=== PATIENT | female | born 1960 | race Caucasian/White ===

== ENCOUNTER 2021-09-20 13:22 | Emergency (ER) | payer OTHER, SELFPAY ==
[2021-09-20 13:37] VITALS: BP 127/82; PULSE 77; RESP 18; TEMP 36.3; O2SAT 100
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
[2021-09-20 13:54] VITALS: BP 127/82; PULSE 77; RESP 18; TEMP 36.3; O2SAT 100
== END 2021-09-20 14:07 | disposition home or self-care (01) ==
PROVIDERS: Emergency Provider Nurse Practitioner
DX: K08.89 Other specified disorders of teeth and supporting structures (principal); Z87.891 Personal history of nicotine dependence
CPT/HCPCS: 99203; G0463

== ENCOUNTER 2021-10-30 09:52 | Emergency (ER) | payer OTHER, SELFPAY ==
[2021-10-30 10:02] VITALS: BP 141/91; PULSE 73; RESP 16; TEMP 36.2; O2SAT 99
[2021-10-30 10:16] VITALS: BP 141/91; PULSE 73; RESP 16; TEMP 36.2; O2SAT 99
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
== END 2021-10-30 10:33 | disposition home or self-care (01) ==
PROVIDERS: Emergency Provider Nurse Practitioner
DX: K59.00 Constipation, unspecified (principal); Z87.891 Personal history of nicotine dependence
CPT/HCPCS: 99211; G0463

== ENCOUNTER 2021-11-16 15:30 | Emergency (ER) | payer OTHER, SELFPAY ==
[2021-11-16 15:43] VITALS: BP 145/96; PULSE 80; RESP 16; TEMP 37.7; O2SAT 98
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
[2021-11-17 12:27] LABS: SARS-CoV-2 RNA PCR Positive
== END 2021-11-16 17:04 | disposition home or self-care (01) ==
PROVIDERS: Emergency Provider Nurse Practitioner
DX: U07.1 COVID-19 (principal); Z87.891 Personal history of nicotine dependence
CPT/HCPCS: 87426; 87804; 99213; C9803; G0463; U0003; U0005

== ENCOUNTER 2021-11-21 15:53 | Emergency (ER) | payer OTHER, SELFPAY ==
[2021-11-21] VITALS (21 sets, daily range): BP systolic 135–155; BP diastolic 81–100; PULSE 0–101; RESP 0–38; TEMP 37–37.1; O2SAT 98
--- NOTE | ~2021-11-21 | XR_ITS ---
EXAMINATION: XR chest 1V portable EXAM DATE: 11/21/2021 16:44 INDICATION: SOB, N/V, Headache, COVID + Since Mon, Symptoms worsening. TECHNIQUE: Portable AP frontal chest x-ray was obtained. There is no prior study for comparison. FINDINGS: Small amount of ill-defined bibasilar airspace disease.. There are no pleural effusions. Cardiomediastinal silhouette is normal. The lungs are hyperinflated which can be seen with chronic ob structive pulmonary disease (a clinical diagnosis of functional impairment), but is not diagnostic of it. There is no pneumothorax suspected. The bones and soft tissues are unremarkable. IMPRESSION: Small amount of ill-defined bibasilar edema or pneumonia. Reviewed, dictated and finalized at location G. [employer] DEVELOPER
--- NOTE | 2021-11-21 16:16 | ECG_ITS ---
Measurements Intervals [place] Rate: 72 P: 5 MN: 135 QRS: -43 QRSD: 84 T: 67 QT: 364 QTc: 400 Interpretive Statements SINUS RHYTHM LEFT AXIS DEVIATION LOW QRS VOLTAGE IN PRECORDIAL LEADS BORDERLINE R WAVE PROGRESSION, ANTERIOR LEADS BORDERLINE ST-T WAVE ABNORMALITY- HIGH LATERAL LEADS BASELINE ARTIFACT- I, II, V3 BORDERLINE ECG Electronically Signed On 11-21-2021 20:21:17 [employer] by Paulie Haque D.O.
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
[2021-11-21] MEDS: ALBUTEROL SULFATE NEB 2.5 MG/0.5 ML INH 5 MG INHALATION (16:49)
[2021-11-21 16:50] LABS: Basophils Percent Auto 0.4 % (0.2-1.2); Eosinophils Percent Auto 0.2 % (0-4.4); Hematocrit 44.9 % (37.0-47.0); Hemoglobin 15.1 g/dL (12.0-15.0); Immature Granulocyte Absolute 0.02 K/mm3 (0.00-0.031); Immature Granulocyte Percent A 0.4 % (0-0.5); Immature Platelet Fraction Pct 6.9 % (0.9-11.2); Lymphocytes Absolute Auto 1.11 K/mm3 (0.9-3.2); Lymphocytes Percent Auto 22.9 % (18.3-44.2); Mean Corpuscular HGB Conc 33.6 g/dl (32-36); Mean Corpuscular Hemoglobin 29.9 pg (26-34); Mean Corpuscular Volume 88.9 fl (80-100); Mean Platelet Volume 11.2 fl (7.4-10.4); Monocytes Absolute Auto 0.3 K/mm3 (0.1-0.6); Monocytes Percent Auto 6.2 % (2.6-8.5); Neutrophils Absolute Auto 3.4 K/mm3 (1.3-6.7); Neutrophils Percent Auto 69.9 % (45.5-73.1); Platelet Count Result 139 k/mm3 (150-375); Red Blood Count 5.05 M/mm3 (4.2-5.4); Red Cell Distribution Width 13.2 % (11.5-14.5); White Blood Count 4.8 K/mm3 (4.5-10.0)
[2021-11-21] MEDS: SODIUM CHLORIDE 0.9% IV 1,000 ML 999 ML IV CONT (16:53)
[2021-11-21 16:59] LABS: Alanine Aminotransferase 28 U/L (4-35); Albumin Level 4.1 g/dL (3.5-5.1); Alkaline Phosphatase 69 U/L (38-126); Anion Gap 7 mmol/L (8-16); Aspartate Amino Transferase 31 U/L (14-36); Bilirubin,Total 0.5 mg/dL (0.2-1.3); Blood Urea Nitrogen 13 mg/dL (7-17); Calcium 8.6 mg/dL (8.4-10.2); Carbon Dioxide 25 mmol/L (22-30); Chloride 102 mmol/L (98-107); Estimated Glomerular Filt Rate > 60; Glucose 103 mg/dL (65-110); Potassium 3.5 mmol/L (3.4-5.0); Sodium 134 mmol/L (137-145)
[2021-11-21] MEDS: BENZONATATE 100 MG CAPSULE PO (17:19)
== END 2021-11-21 18:00 | disposition home or self-care (01) ==
PROVIDERS: Emergency Provider Emergency Medicine
DX: U07.1 COVID-19 (principal); Z87.891 Personal history of nicotine dependence
CPT/HCPCS: 36415; 71045; 80053; 85025; 85055; 93005; 94640; 96360; 99283; A9270; J7030

== ENCOUNTER 2021-12-04 17:22 | Emergency (ER) | payer OTHER, SELFPAY ==
[2021-12-04 17:34] VITALS: BP 135/92; PULSE 88; RESP 16; TEMP 37.3; O2SAT 99
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
== END 2021-12-04 18:05 | disposition home or self-care (01) ==
PROVIDERS: Emergency Provider Nurse Practitioner Family
DX: U07.1 COVID-19 (principal); R05.9 Cough, unspecified; Z87.891 Personal history of nicotine dependence
CPT/HCPCS: 99211; G0463

== ENCOUNTER 2021-12-08 13:47 | Emergency (ER) | payer OTHER, SELFPAY ==
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
[2021-12-08 13:57] VITALS: BP 140/85; PULSE 84; RESP 20; TEMP 37.1; O2SAT 100
--- NOTE | 2021-12-08 14:03 | ECG_ITS ---
Measurements Intervals [place] Rate: 65 P: 7 AR: 155 QRS: -17 QRSD: 86 T: 50 QT: 401 QTc: 418 Interpretive Statements SINUS RHYTHM CANNOT RULE OUT SEPTAL INFARCT, AGE INDETERMINATE ABNORMAL ECG Electronically Signed On 12-09-2021 17:03:33 TERRAZZO INSTALLER by Paulie Haque D.O.
== END 2021-12-08 14:25 | disposition left against medical advice (07) ==
PROVIDERS: Emergency Provider Nurse Practitioner Family
DX: R53.83 Other fatigue (principal); U09.9 Post COVID-19 condition, unspecified; R00.2 Palpitations; Z87.891 Personal history of nicotine dependence
CPT/HCPCS: 93005; 99213; G0463

== ENCOUNTER 2022-06-18 09:03 | Emergency (ER) | payer OTHER, SELFPAY ==
--- NOTE | 2022-06-18 09:11 | ED.URI ---
HPI - URI/Sore Throat General Chief Complaint: Upper Respiratory Infection Stated Complaint: uri Time Seen by Provider: 06/18/22 09:20 Source: patient Mode of arrival: ambulatory Limitations: no limitations History of Present Illness HPI Narrative: Ms. Darden is a 61-year-old female patient presenting to the clinic today with complaints of sinus pressure and congestion x6 weeks. She reports his symptoms started about 6 weeks ago but have gotten worse over the last 2 weeks. She is having green nasal drainage and postnasal drip. She denies any fever or chills. She denies any known exposure to COVID, flu, or strep. She reports that she has chronic sinus issues and she has polyps. States that she has not been able to see ENT for these chronic sinus issues. MD elicited complaint: sore throat and nasal congestion Related Data Allergies Allergy/AdvReac Type Severity Reaction Status Date / Time codeine Allergy Rash Verified 06/18/22 09:13 Review of Systems Review of Systems: Pertinent positives per HPI. Patient denies any fever, chills, rash, visual changes, dizziness, cough, shortness of breath, chest pain, palpitations, nausea, vomiting, diarrhea, constipation, abdominal pain, or any urinary issues. [facility] Past Medical History Medical History Stress fracture Social History Social History Smoking status: Former smoker Alcohol intake: current Comments At the time of my signature, I reviewed and agree with the nursing past medical, surgical, social, and family history. There is no relevant family history pertinent to the patient complaint. Exam Narrative: General: Well-developed, well nourished, in no apparent distress Head: Normocephalic, atraumatic Eyes: Pupils equally round and reactive to light bilaterally, EOM intact, sclera and conjunctive clear, no discharge, lids normal Ears: TMs intact and clear, ear canals clear, no drainage, grossly hearing normal. Nose: Nares patent, green discharge, moderate inflammation, sinus tenderness over the maxillary, ethmoid, and frontal sinuses. Mouth: Oral pharynx without lesions or masses, good dentition, MMM. Postnasal drip Neck: Supple, trachea midline, no enlargement of anterior or posterior cervical nodes, no thyroid masses or goiter palpable. Cardio: Regular rate and rhythm, s1 and s2 normal, no murmur appreciated. Resp: Clear to auscultation bilaterally, no rhonchi, rales, wheezing or rubs Course Course Emergency Course: Portions of this record may have been created with voice recognition software. Level of Care: Express Care Visit Vital Signs Vital signs: Vital signs reviewed MDM - URI/Sore Throat MDM Narrative Medical decision making narrative: At the time of visit patient is resting comfortably on exam table. I suspect the patient has sinusitis and will treat with a course of Augmentin and prednisone. Supportive measures were discussed with the patient she voiced understanding of discharge instructions and agrees to treatment plan. Differential Diagnosis Differential diagnosis: Likely upper respiratory infection, sinusitis, viral infection, influenza and pharyngitis Discharge Plan Discharge Clinical Impression: Acute bacterial rhinosinusitis Patient Disposition: Home, Self-Care Condition: Stable Instructions: Antibiotic Form, Rhinosinusitis (ED) Additional Instructions: Take prescription medications only as prescribed-prednisone and Augmentin Increase fluids and stay well hydrated Tylenol/motrin for pain/fever Flonase and OTC antihistamines as directed Vicks vapor rub to open sinuses Sinus rinses for congestion Cepacol spray, cough drops, throat lozenges, warm tea with honey/lemon, gargle salt water to soothe throat BRAT diet for diarrhea Clear liquids x 24 hours then advance as tolerated for nausea/v
[2022-06-18 09:14] VITALS: BP 140/92; PULSE 73; RESP 18; TEMP 36.4; O2SAT 99
== END 2022-06-18 09:32 | disposition home or self-care (01) ==
PROVIDERS: Emergency Provider Nurse Practitioner Family
DX: J01.90 Acute sinusitis, unspecified (principal); Z87.891 Personal history of nicotine dependence
CPT/HCPCS: 99213; G0463

== ENCOUNTER 2022-06-30 14:10 | Emergency (ER) | payer OTHER, SELFPAY ==
--- NOTE | 2022-06-30 14:12 | ED.URI ---
HPI - URI/Sore Throat General Chief Complaint: Upper Respiratory Infection Stated Complaint: Sinus Time Seen by Provider: 06/30/22 14:24 Source: patient and RN notes reviewed Mode of arrival: ambulatory Limitations: no limitations History of Present Illness HPI Narrative: 61-year-old female presents to the [facility] with continued sinus issues. Had been evaluated on June 18, prescribed Augmentin and prednisone. Patient states that she finished the Augmentin and the prednisone and has not gotten any better. Reports using her Flonase every day. States she uses salt water nasal flushes a couple of times a week. Still blowing green snot. Denies any fevers. No chest pain or shortness of breath. No abdominal pain. Has a history of chronic sinus issues. Has not seen ENT for this. Related Data Home Medications Medication Instructions Recorded Confirmed atorvastatin 40 mg tablet 40 mg PO DAILY 06/30/22 06/30/22 ibuprofen 800 mg tablet 800 mg PO BID 06/30/22 06/30/22 Allergies Allergy/AdvReac Type Severity Reaction Status Date / Time codeine Allergy Rash Verified 06/30/22 14:18 Review of Systems Review of Systems: All systems reviewed & are unremarkable except as noted in HPI and below Constitutional: Constitutional: Reports no additional constitutional complaints, Denies chills and Denies fever(s) Eyes: Eyes: Reports no additional eye complaints ENT: Reports as per HPI Cardiovascular: Cardiovascular: Reports no additional cardiovascular complaints Respiratory: Respiratory: Reports no additional respiratory complaints Gastrointestinal: Gastrointestinal: Reports no additional gastrointestinal complaints Musculoskeletal: Musculoskeletal: Reports no additional musculoskeletal complaints Integumentary/Breasts: Skin/Breast: Reports system reviewed and no additional complaints, except as docu Neurologic: Reports system reviewed and no additional complaints, except as documented Psychiatric: Psychiatric: Reports no additional psychiatric complaints Allergic/Immunologic: Allergic/Immunologic: Reports no additional allergic/immunologic complaints [facility] Past Medical History Medical History Stress fracture Social History Social History Smoking status: Former smoker Alcohol intake: current Comments At the time of my signature, I reviewed and agree with the nursing past medical, surgical, social, and family history. There is no relevant family history pertinent to the patient complaint. Exam Const: General: healthy appearing, no acute distress and alert Nutritional Appearance: well nourished Orientation/consciousness: patient oriented x3 Limitations: no limitations HENMT: Head: normal to inspection Ears: external ears normal, TM's normal bilaterally and EAC's normal General nose exam: Normal external nose present, Normal nares present and Nasal discharge present clear (to greenish) bilateral Face and sinus: normal facial exam and sinus tenderness frontal and maxillary Mouth: Yes Normal oral and palatal mucosa present Throat: posterior oropharynx normal, uvula midline and postnasal drainage Eyes: General: appearance normal, both eyes and all related structures Pupils: Equal, round and reactive pupils present Neck: Neck: normal visual inspection, no lymphadenopathy and no meningeal signs Chest: Chest palpation & inspection: normal inspection of the chest Resp: Effort & Inspection: normal respiratory effort and no use of accessory muscles Auscultation: clear to auscultation bilaterally, no crackles, no rales, no rhonchi and no wheezes Cardio: Rate: regular rate Rhythm: regular rhythm Back/Spine/Pelvis: Cervical Spine: normal cervical lordosis Thoracic/Lumbar Spine: thoracic and lumbar spine normal to inspection Skin: General skin exam: normal color Rashes: no rashes Wounds: no wounds Ne
[2022-06-30 14:20] VITALS: BP 133/87; PULSE 69; RESP 16; TEMP 36.5; O2SAT 99
== END 2022-06-30 14:36 | disposition home or self-care (01) ==
PROVIDERS: Emergency Provider Nurse Practitioner
DX: J32.9 Chronic sinusitis, unspecified (principal); Z87.891 Personal history of nicotine dependence
CPT/HCPCS: 99211; G0463

== ENCOUNTER 2022-08-19 08:24 | Outpatient (CLI) | payer OTHER, SELFPAY ==
--- NOTE | ~2022-08-19 | CT_ITS ---
EXAMINATION: CT sinus wo con DATE: 08/19/2022 08:54 INDICATION: Chronic sinusitis for 40 years. Right temporal, bilateral orbital headache TECHNIQUE: Computed tomography (CT) of the paranasal sinuses was performed without contrast. Iterativ e reconstruction technique was employed. Exam dose: 304.88 mGy-cm total exam DLP. COMPARISON: None FINDINGS: There is rightward bowing of the nasal septum. Intralamellar cell of left middle nasal turbinate. The left middle and inferior nasal turbinates are moderately swollen compared to the right. There is minimal soft tissue thickening of the frontal sinuses and patchy moderate soft tissue thicke juan of ethmoid air cells bilaterally. There is moderate nodular mucoperiosteal thickening of the maxillary sinuses, primarily the inferior portions. There is soft tissue thickening at the maxillary ostium bilaterally and extensive soft tiss ue thickening of the right infundibulum, mild soft tissue thickening of the left infundibulum. There is slight focal mucoperiosteal thickening of the sphenoid sinuses. The mastoid air cells are normally developed and aerated bilaterally. IMPRESSION: Rightward bowing of nasal septum Interlamellar cell of left middle nasal turbinate. Soft tissue swelling of left nasal turbinates Infundibulum opacification, right greater than left Bilateral maxillary ostium soft tissue thickening Minimal soft tissue thickening of the frontal and sphenoid sinuses, moderate soft tissue thickening o f the ethmoid air cells and maxillary sinuses Reviewed, dictated and finalized at [facility] Reviewed, dictated and finalized at [facility]. IMPRESSION: Rightward bowing of nasal septum Interlamellar cell of left middle nasal turbinate. Soft tissue swelling of left nasal turbinates Infundibulum opacification, right greater than left Bilateral maxillary ostium soft tissue thickening Minimal soft tissue thickening of the frontal and sphenoid sinuses, moderate so ft tissue thickening of the ethmoid air cells and maxillary sinuses
== END 2022-08-19 08:25 | disposition home or self-care (01) ==
PROVIDERS: Visit Provider Otolaryngology
DX: J34.89 Other specified disorders of nose and nasal sinuses (principal); J34.2 Deviated nasal septum; J32.9 Chronic sinusitis, unspecified; R09.82 Postnasal drip; R51.9 Headache, unspecified; R44.8 Other symptoms and signs involving general sensations and perceptions
CPT/HCPCS: 70486

== ENCOUNTER 2022-11-18 00:48 | Day surgery (SDC) | payer OTHER, SELFPAY ==
[2022-11-07 14:35] VITALS: BMI 28.5
--- NOTE | 2022-11-07 14:43 | PC.NURSE ---
Report to the Outpatient Waiting Room, entrance under the green pavilion located off [facility], at time 1200 on date 11/18/22. Planned Procedure Time: 1400. Time changes happen often and if your time is changed the preop area will call you the afternoon before. - You and your visitor will be asked to self-screen and do not enter if you have any COVID symptoms. - Only one visitor is requested with a max of two and NO children visitors are allowed at this time. - The patient visitor may be requested to leave or wait in car when not with patient due to distancing restrictions. - A mask is optional within the hospital. Patients may have clear liquids (water, carbonated beverages, clear teas, apple juice) until 3 hours prior to surgery with a maximum of 20 ounces. - No food from midnight until time of surgery Take the following medications with a SIP of water the morning of surgery: NONE Medications to discontinue per physician: N/A Date to take last dose: N/A Please no make-up, nail croatian, hairspray, perfume, deodorant, or body powder the day of surgery. No jewelry (including any body piercings) or valuables the day of surgery, leave them at home. Please take a shower or bath the night before, or the morning of, surgery with an antibacterial soap. Wear comfortable, loose fitting clothing. - Jewelry must be removed prior to entering the operating room. Rings and piercings that are not removed may be cut off. - The hospital will not accept responsibility for valuables. - Please leave all valuables, including medications, at home the day of surgery. If you are going home after surgery, a licensed wheelchair van driver must drive you home. - NO public transportation without another adult if you receive anesthesia. - We recommend that an adult stay with you for 24 hours following discharge. - We also recommend that you do not drive, make important decision, drink alcoholic beverages, or take any drugs that were not prescribed by your health care provider for at least 24 hours after your discharge time. Follow any additional instructions given to you from your surgeon. If you or anyone in your household have experienced Covid symptoms in the past week, please notify your surgeon or the nurse liaison at the phone number below for possible testing. Telephone instructions given to PT - JAELYN HAYWOOD and asked if any additional questions and then verbalized understanding. Patient advised to call surgeon office or pre surgery nurse liaison [phone] if any additional questions.
--- NOTE | 2022-11-17 17:42 | PM.IMHP ---
H&P: HPI History of Present Illness Date/Time: 11/17/22 17:42 Chief Complaint: Chronic sinusitis nasal obstruction nasal congestion septal deviation turbinate hypertrophy Narrative: planned surgical procedure Review of Systems Review of Systems: All systems reviewed & are unremarkable except as noted in HPI and below PMFSH Past Medical History Medical History Stress fracture Social History Social History Smoking status: Never smoker Alcohol intake: current Alcohol use details: RARE Substance use: never Substance use type: does not use Living arrangements: alone Spiritual care concerns: No Meds Home Medications and Allergies Home Medications Medication Instructions Recorded Confirmed Type cetirizine 10 mg tablet (Zyrtec) 10 mg PO DAILY 08/12/22 11/07/22 History fluticasone propionate 50 1 - 2 spray intranasal BID 08/12/22 11/07/22 History mcg/actuation nasal spray,suspension prednisone 5 mg tablet 5 mg PO DAILY #3 tabs 11/14/22 Rx Allergies Allergy/AdvReac Type Severity Reaction Status Date / Time codeine Allergy Rash Verified 11/07/22 14:32 hydrogen peroxide Allergy Other Verified 11/07/22 14:33 Exam Narrative: septal deviation turbinate hypertrophy Assessment and Plan Assessment and plan (1) Nasal obstruction: Code(s): J34.89 - Other specified disorders of nose and nasal sinuses Status: Acute Assessment and Plan: Plan OR for endoscopic assisted septoplasty inferior turbinate submucosal resection with outfracture,image guided endoscopic bilateral frontal sinusotomy bilateral maxillary antrostomy without tissue removal bilateral anterior ethmoidectomy.? ?risks discussed including brain brain damage CSF leak need for further procedures need for transfer to an academic center blindness change in vision septal perforation need for splint placement need for time off work need for time off school.? Postoperative bleeding failure to resolve symptoms need for prolonged medication usage given the chronic sinus and polyps.? Patient voiced understanding and agreed. (2) Nasal septal deviation: Code(s): J34.2 - Deviated nasal septum Status: Acute (3) Recurrent sinusitis: Code(s): J32.9 - Chronic sinusitis, unspecified Status: Acute (4) PND (post-nasal drip): Code(s): R09.82 - Postnasal drip Status: Acute (5) Headache: Code(s): R51.9 - Headache, unspecified Status: Acute (6) Hypertrophy of both inferior nasal turbinates: Code(s): J34.3 - Hypertrophy of nasal turbinates Status: Acute (7) Chronic sinusitis: Code(s): J32.9 - Chronic sinusitis, unspecified Status: Acute
[2022-11-18] VITALS (10 sets, daily range): BP systolic 131–146; BP diastolic 73–89; PULSE 58–80; RESP 12–18; TEMP 36.7–37.1; O2SAT 98–100
--- NOTE | 2022-11-18 07:19 | WPDHPUPDATE1 ---
History and Physical Update Update Date/Time: 11/18/22 07:19 History and Physical has been reviewed, including an updated exam of the patient. There are NO changes in the patient's condition. Risks, benefits, and alternatives have been discussed and questions answered. Patient agrees to proceed with procedure.
--- NOTE | 2022-11-18 09:36 | P.PNAN_ITS ---
Anes - Initial Pre Proc Eval Procedure: Operation Date: 11/18/22 13:00 Proposed Procedures p Image Guided Bilateral Inferior Turbinectomy With Outfracture, Bilateral Frontal Sinusotomy, Bilateral Maxillary Antrostomy without Tissue Removal, Bilateral Anterior Ethmoidectomy, - Will Fonseca MD s Endoscopic Septoplasty - Will Fonseca MD Date/Time: 11/18/22 09:36 Surgeon: Will Fonseca MD Pre Op Diagnosis: chronic sinusitis Patient Data Age: 61 Gender: F Height: 1.66 m Weight: 78.85 kg Allergies Allergy/AdvReac Type Severity Reaction Status Date / Time codeine Allergy Rash Verified 11/18/22 11:09 hydrogen peroxide Allergy Other Verified 11/18/22 11:09 Home Medications Medication Instructions Recorded Confirmed Type cetirizine 10 mg tablet (Zyrtec) 10 mg PO DAILY 08/12/22 11/18/22 History fluticasone propionate 50 1 - 2 spray intranasal BID 08/12/22 11/18/22 History mcg/actuation nasal spray,suspension Patient hx anesthesia problems: none Family hx anesthesia problems: none Results Review: All pre-operative results and documents have been reviewed as part of the pre- operative evaluation. FOR[facility]LY [facility], [facility] Past Medical History Medical History (Updated 11/18/22 @ 09:37 by Black Clinton DO) Anxiety Depression Stress fracture Surgical History Surgical History (Updated 11/18/22 @ 09:37 by Black Clinton DO) History of appendectomy History of hysterectomy History of tonsillectomy History of tubal ligation Social History Social History Smoking status: Never smoker Alcohol intake: current Alcohol use details: RARE Substance use: never Substance use type: does not use Living arrangements: alone Spiritual care concerns: No Anes - Eval Final PreProcedure Day of Procedure 11/18/22 09:36 Patient weight: overweight Heart: regular rate and rhythm Lungs: clear to auscultation Airway: Mallampati scale class II Neurological: alert and oriented Last oral intake: >/= 8 hours ASA classification: II Emergent: no Anesthetic plan: proceed Anesthesia type and monitoring: general ETT and standard monitoring Results Review: All pre-operative results and documents have been reviewed as part of the pre- operative evaluation. Informed Consent: The patient's anesthetic plan and its attendant risks and benefits were discussed with the patient/family/POA. Questions were solicited and answers provided to the satisfaction of the patient/family/POA.
[2022-11-18] MEDS: LACTATED RINGERS 1,000 ML 30 ML IV CONT ×2 (11:28→16:08)
[2022-11-18] MEDS: ACETAMINOPHEN 500 MG TABLET 1000 MG PO (12:02)
[2022-11-18] MEDS: ceFAZolin 2 GM/D5W 50 ML 2 GM/50 ML BAG IVPB (13:30)
[2022-11-18] MEDS: LIDO 1%/EPINEPHRINE 1:100,000 20 ML VIAL INFILTRATE (15:42)
[2022-11-18] MEDS: TRIAMCINOLONE ACET INJ 40 MG/ML VIAL IM (15:43)
[2022-11-18] MEDS: fentaNYL CITRATE INJ (*CRX) 100 MCG/2 ML VIAL 25 MCG IV PUSH ×6 (16:26→16:50)
--- NOTE | 2022-11-18 16:42 | P.OP_ITS ---
Procedure Note - Detailed Date of Procedure 11/18/22 Pre-op Diagnosis chronic sinusitis, nasal obstruction, nasal congestion, septal deviation, turbinate hypertrophy Post-op Diagnosis Same Procedure Performed Endoscopic assisted septoplasty turbinate reduction with outfracture bilateral image guided maxillary antrostomies anterior ethmoidectomies frontal sinusotomies Surgeon Will Fonseca MD Anesthesia General Indications see above Findings severe deviation to the right disease mucosa the aforementioned sinuses. No complications. Description of Procedure Patient identified consent verified. Patient brought operating. Time-out performed. General anesthesia induced endotracheal tube secured. Patient prepped reposition 2nd time-out performed. Image guidance initiated and confirmed. Afrin-soaked pledgets placed last sit for 5 minutes then removed. 15 cc 1% lidocaine 1 100,000 parts epinephrine injected deep to the bilateral septum and anterior heads of the inferior turbinates. [place] incision made left-sided 15 blade left-sided nasal septal flap elevated with 7 [place] suction. Osteotome utilized to cross over septum right-sided flap elevated. Deviated septum removed with combination osteotome Silvia forceps Gordon Cruz forceps. Large right spur cause perforation none on the left. [place] incision closed with 3 interrupted 5 0 fast gut sutures. Turbinates reduced submucosal plane turbinate blade on microdebrider. Outfracture [place] elevator. Maxillary antrostomies performed with microdebrider image guidance backbiter double ball tip probe straight through cut. Diseased mucous and mucosa in all of them. Anterior ethmoidectomies performed with image guidance [place] microdebrider. Frontal sinusotomies performed with image guidance frontal sinus instruments and 70 degree scope. Blood loss 50 cc. Nova pack placed bilateral middle meati I coated in Kenalog. [place] splints placed bilaterally trimmed sutured anteriorly using 3-0 mattressed nylon suture. I performed all dictated portions no complicated no complications patient tolerated procedure well care the patient given Anesthesiology. Estimated Blood Loss 50 Drains No Packing Yes (Novapak) Pathology None sent Complications No immediate complications Condition Stable Disposition PACU [facility] Billing Surgery - Charge Forward: Surgery Billing
[2022-11-18] MEDS: ONDANSETRON INJ 4 MG/2 ML VIAL IV PUSH (16:43)
[2022-11-18] MEDS: HYDROmorphone HCL INJ (*CRX) 1 MG/ML SYR 0.5 MG IV PUSH (17:00)
--- NOTE | 2022-11-18 17:55 | SUR.PHASEII ---
PATIENT C/O'ING SHE FEELS LOOPY . ENCOURAGING TO DRINK WATER AND EAT CRACKERS.
== END 2022-11-18 18:30 | disposition home or self-care (01) ==
PROVIDERS: Visit Provider Otolaryngology
PROC: (CPT 31254; principal; 2022-11-18 13:00)
PROC: (CPT 30520; 2022-11-18 13:00)
DX: J32.9 Chronic sinusitis, unspecified (principal); J34.89 Other specified disorders of nose and nasal sinuses; J34.2 Deviated nasal septum; R09.82 Postnasal drip; R51.9 Headache, unspecified; J34.3 Hypertrophy of nasal turbinates
CPT/HCPCS: 31254; 31276; 31256; 61782; 30520; 30140; A9270; J0330; J0690; J1100; J1170; J2250; J2405; J2704; J3010; J3301; J7120